=== PATIENT | female | born 1960 | race Two or more races ===

== ENCOUNTER 2024-12-28 19:47 | Emergency (ER) | payer OTHER, MEDICAID ==
[~2024-12-28] VITALS: Ht 170.2 cm; Wt 70.3 kg
[~2024-12-28 19:47] MED LIST: BUPR100T5 PO; ESCI20TA PO; MONT10TA22 PO
[2024-12-28] MEDS ORDERED: TOPI50TA24 PO (20:17)
[2024-12-28] MEDS ORDERED: [UNRECOGNIZED DRUG - OTHER] PO (20:17)
[2024-12-28] MEDS ORDERED: OMEP20TA5 PO (20:17)
[2024-12-28] MEDS ORDERED: KETOROLAC TROMETHAMINE 30 MG INJ ONE (21:03)
[2024-12-28] MEDS: KETOROLAC TROMETHAMINE 30 MG INJ IM ONE (21:08)
[2024-12-28 21:20] LABS: PLATELET COUNT (AUTO) 231 K/uL (179-408); RED BLOOD CELL COUNT(AUTO) 4.48 MIL/uL (3.63-4.92); RED CELL DISTRIBUTION WIDTH 18.2 % (12.3-17.7); WHITE BLOOD COUNT (AUTO) 4.1 K/uL (3.8-11.8)
[2024-12-28 21:29] LABS: CREATININE 0.6 mg/dL (0.6-1.3); SODIUM SERUM 142.0 mmol/L (136-145); UREA NITROGEN, BLOOD 15.0 mg/dL (7-18)
[2024-12-28 21:34] LABS: ASPARTATE AMINOTRANSFERASE 29.0 U/L (15-37); TOTAL PROTEIN, SERUM 7.7 g/dL (6.4-8.2)
[2024-12-28 21:35] LABS: *BILIRUBIN,URIN NEGATIVE (NEGATIVE); *BLOOD, URINE NEGATIVE (NEGATIVE); *CLARITY,URINE CLEAR (CLEAR); *COLOR,URINE YELLOW (YELLOW); *KETONES,URINE NEGATIVE (NEGATIVE); *PROTEIN,URINE NEGATIVE (NEGATIVE); *UROBILINOGEN,URINE 0.2 E.U./dl (NORMAL); LEUKOCYTE ESTERASE ,URINE NEGATIVE (NEGATIVE); NITRITE, URINE NEGATIVE (NEGATIVE); UGLUCOSE NEGATIVE (NEGATIVE)
[2024-12-28] MEDS ORDERED: KETO10TA2 PO (23:04)
[2024-12-28 23:13] VITALS: BP 115/79; TEMP 97.9; O2SAT 98
== END 2024-12-28 23:14 | disposition home or self-care (01) ==
LOC: ER 20:21
DX: G43.909 Migraine, unspecified, not intractable, without status migrainosus (principal); F32.A Depression, unspecified; F41.9 Anxiety disorder, unspecified; Z79.899 Other long term (current) drug therapy; Z88.0 Allergy status to penicillin; Z87.09 Personal history of other diseases of the respiratory system; Z87.19 Personal history of other diseases of the digestive system; Z60.2 Problems related to living alone
CPT/HCPCS: 99285; 70450; 80053; 81003; 85025; 36415; 96372; J1885; A4606; A4663